=== PATIENT | male | born 1935 | race Caucasian/White ===

== ENCOUNTER → 2017-04-14 | Outpatient (CLI) | payer MEDICARE ==
[~2017-04-14] MED LIST: ASPI-496; CLIN300C8 PO; CLON0.1T PO; HYDR12.53; LOSA100T6; METO-99 PO; METO50TA82; SIMV40TA3
== END | disposition home or self-care (01) ==
LOC: ROC 07:46
PROVIDERS: ATTEND Radiology Radiation Oncology
DX: C61 Malignant neoplasm of prostate (principal); I10 Essential (primary) hypertension; Z79.82 Long term (current) use of aspirin; Z95.1 Presence of aortocoronary bypass graft; Z95.4 Presence of other heart-valve replacement; Z87.891 Personal history of nicotine dependence; Z88.0 Allergy status to penicillin
CPT/HCPCS: 99212; G0463

== ENCOUNTER 2017-07-14 11:01 | Inpatient (IN) | payer MEDICARE ==
[~2017-07-14] VITALS: Ht 170.2 cm; Wt 71.0 kg
[~2017-07-14 11:01] MED LIST changes: -ASPI-496; +ASPI-496 PO; -LOSA100T6; +LOSA100T6 PO; -SIMV40TA3; +SIMV40TA3 PO
[2017-07-14] MEDS ORDERED: ZIPRASIDONE 20 MG INJ IM ONE ×2 (11:04→11:30)
[2017-07-14] MEDS ORDERED: ONDANSETRON 2MG/ML, 2ML ONE (11:23)
[2017-07-14] MEDS ORDERED: SODIUM CHLORIDE FLUSH 10ML SYR IVF ONE (11:30)
[2017-07-14] MEDS ORDERED: ONDANSETRON 2MG/ML, 2ML IVPush ONE (11:30)
[2017-07-14 11:50] LABS: BASOPHILS # (AUTO) 0.02 x10^3/uL (0-0.1); BASOPHILS % (AUTO) 0 % (0-1); EOSINOPHILS # (AUTO) 0.02 x10^3/uL (0-0.4); EOSINOPHILS % (AUTO) 0 % (1-7); LYMPHOCYTES # (AUTO) 1.64 x10^3/uL (1-3.4); LYMPHOCYTES % (AUTO) 21 % (22-44); MD NO; MEAN CORPUSCULAR HEMOGLOBIN 32.9 pg (27.5-34.5); MEAN CORPUSCULAR HGB CONC 33.6 g/dL (33.2-36.2); MEAN CORPUSCULAR VOLUME 97.8 fL (81-97); MEAN PLATELET VOLUME 7.2 fL (7.4-10.4); MONOCYTES # (AUTO) 0.54 x10^3/uL (0.2-0.8); MONOCYTES % (AUTO) 7 % (2-9); NEUTROPHILS # (AUTO) 5.72 x10^3/uL (1.8-6.8); NEUTROPHILS % (AUTO) 72 % (42-75); PLATELET COUNT 177 x10^3/uL (130-400); RED BLOOD COUNT 4.55 x10^6/uL (4.38-5.82); RED CELL DISTRIBUTION WIDTH 12.8 % (9.4-14.8)
[2017-07-14 11:54] LABS: INTERNATIONAL NORMALIZED RATIO 0.99 (0.93-1.1); PROTHROMBIN TIME 10.3 Seconds (9.6-11.5)
[2017-07-14] MEDS ORDERED: HYDR12.53 PO (11:56)
[2017-07-14 12:04] LABS: ANION GAP 10 mmol/L (5-15); CHLORIDE 107 mmol/L (98-107)
[2017-07-14 12:12] LABS: ALANINE AMINOTRANSFERASE 12 U/L (12-78); ALKALINE PHOSPHATASE 84 U/L (45-117); BILIRUBIN,TOTAL 1.2 mg/dL (0.2-1.0); CREATININE 1.58 mg/dL (0.7-1.3); TOTAL PROTEIN 7.4 g/dL (6.4-8.2); TROPONIN I 0.082 ng/mL (0.000-0.045)
[2017-07-14] MEDS ORDERED: ONDANSETRON 2MG/ML, 2ML IVPush PRN (12:30)
[2017-07-14] MEDS ORDERED: ACETAMINOPHEN 325 MG TABLET PO PRN (12:30)
[2017-07-14] MEDS: SODIUM CHLORIDE 0.9% 1,000 ML IV SCH ×2 (12:44→22:02)
[2017-07-14] MEDS ORDERED: hydrALAzine 20 MG/ML, 1ML IV PRN (13:00)
[2017-07-14] MEDS: LEVETIRACETAM 500 MG in SODIUM CHLORIDE 0.9% 100 ML IV SCH (13:04)
[2017-07-14 13:39] VITALS: BP 132/73
[2017-07-14 16:40] LABS: TROPONIN I 0.153 ng/mL (0.000-0.045)
[2017-07-14 19:04] VITALS: BP 94/56
[2017-07-14 19:11] VITALS: BP 101/53
[2017-07-14] MEDS: METOPROLOL TARTRATE 50 MG TABLET PO SCH (20:56)
[2017-07-14] MEDS: SIMVASTATIN 40 MG TABLET PO SCH (20:56)
[2017-07-15] VITALS: BP 121/62
[2017-07-15 01:19] VITALS: BP 109/61
[2017-07-15] MEDS: LEVETIRACETAM 500 MG in SODIUM CHLORIDE 0.9% 100 ML IV SCH (01:22)
[2017-07-15 06:55] VITALS: BP 106/64
[2017-07-15] MEDS: LOSARTAN 50MG TABLET PO SCH (08:39)
[2017-07-15] MEDS: ASPIRIN 81 MG TABLET EC PO SCH (08:39)
[2017-07-15] MEDS: METOPROLOL TARTRATE 50 MG TABLET PO SCH (08:39)
[2017-07-15 12:14] VITALS: BP 114/56
[2017-07-15] MEDS: LEVETIRACETAM 1,000 MG in SODIUM CHLORIDE 0.9% 100 ML IV SCH (13:30)
[2017-07-15 17:21] VITALS: BP 135/63
[2017-07-15 20:13] VITALS: BP 123/72
[2017-07-15] MEDS: SIMVASTATIN 40 MG TABLET PO SCH (21:05)
[2017-07-15] MEDS: METOPROLOL TARTRATE 25 MG TABLET PO SCH (21:05)
[2017-07-15] MEDS ORDERED: TEMAZEPAM 15 MG CAPSULE PO PRN (21:30)
[2017-07-16] VITALS: BP 121/62
[2017-07-16] MEDS: LEVETIRACETAM 1,000 MG in SODIUM CHLORIDE 0.9% 100 ML IV SCH ×2 (01:26→13:09)
[2017-07-16 04:46] VITALS: BP 126/62
[2017-07-16 06:28] LABS: CALCIUM 8.5 mg/dL (8.5-10.1); CHLORIDE 108 mmol/L (98-107)
[2017-07-16 06:31] LABS: ANION GAP 6 mmol/L (5-15); CREATININE 1.07 mg/dL (0.7-1.3)
[2017-07-16 06:45] VITALS: BP 144/80
[2017-07-16 07:30] VITALS: BP 100/58
[2017-07-16] MEDS: LOSARTAN 50MG TABLET PO SCH (07:48)
[2017-07-16] MEDS: ASPIRIN 81 MG TABLET EC PO SCH (07:48)
[2017-07-16 11:57] VITALS: BP 127/77
[2017-07-16] MEDS: METOPROLOL TARTRATE 25 MG TABLET PO SCH (11:59)
[2017-07-16] MEDS ORDERED: METO25TA35 PO (12:24)
[2017-07-16] MEDS ORDERED: LEVE100020 PO (12:24)
[2017-07-16 13:31] VITALS: BP 131/77
== END 2017-07-16 15:51 | disposition home or self-care (01) | DRG 314 ==
LOC: ED 12:19 → EDIP 12:20 → ED 12:36 → 5SO 13:22 → OBSVTOIN 07-15 15:34
PROVIDERS: ADMIT Internal Medicine; ATTEND Internal Medicine
DX: I95.9 Hypotension, unspecified (principal); I71.00 Dissection of unspecified site of aorta; N17.9 Acute kidney failure, unspecified; G93.41 Metabolic encephalopathy; D75.89 Other specified diseases of blood and blood-forming organs; Z95.1 Presence of aortocoronary bypass graft; E53.8 Deficiency of other specified B group vitamins; I12.9 Hypertensive chronic kidney disease with stage 1 through stage 4 chronic kidney disease, or unspecified chronic kidney disease; I25.10 Atherosclerotic heart disease of native coronary artery without angina pectoris; N18.9 Chronic kidney disease, unspecified; N40.0 Benign prostatic hyperplasia without lower urinary tract symptoms; R73.9 Hyperglycemia, unspecified; R32 Unspecified urinary incontinence; T50.8X5A Adverse effect of diagnostic agents, initial encounter; Z82.49 Family history of ischemic heart disease and other diseases of the circulatory system; Z83.3 Family history of diabetes mellitus; Z85.46 Personal history of malignant neoplasm of prostate; Z92.3 Personal history of irradiation; Z95.0 Presence of cardiac pacemaker; Z95.3 Presence of xenogenic heart valve; Z91.041 Radiographic dye allergy status; Z88.0 Allergy status to penicillin; Z91.013 Allergy to seafood; R56.9 Unspecified convulsions; T44.7X5A Adverse effect of beta-adrenoreceptor antagonists, initial encounter; T46.5X5A Adverse effect of other antihypertensive drugs, initial encounter
CPT/HCPCS: 36415; 70450; 71045; 71250; 72125; 74176; 80048; 80053; 80307; 82140; 83735; 84443; 84484; 85025; 85610; 85730; 87040; 93005; 95819; 96372; 96374; G0378; J1953; J2405; J3486; J7030

== ENCOUNTER → 2017-10-22 | Outpatient (CLI) | payer MEDICARE ==
[~2017-10-22] MED LIST changes: +HYDR12.53 PO; +LEVE100020 PO; +METO25TA35 PO
== END ==
LOC: ROC 12:32
PROVIDERS: ATTEND Radiology Radiation Oncology
DX: Z08 Encounter for follow-up examination after completed treatment for malignant neoplasm (principal); C61 Malignant neoplasm of prostate; I10 Essential (primary) hypertension; I25.10 Atherosclerotic heart disease of native coronary artery without angina pectoris; Z79.82 Long term (current) use of aspirin; Z88.0 Allergy status to penicillin; Z95.1 Presence of aortocoronary bypass graft; Z95.2 Presence of prosthetic heart valve
CPT/HCPCS: 99212; G0463

== ENCOUNTER → 2017-11-10 | Outpatient (CLI) | payer MEDICARE ==
[2017-11-10 16:14] LABS: BASOPHILS # (AUTO) 0.03 x10^3/uL (0-0.1); BASOPHILS % (AUTO) 0 % (0-1); EOSINOPHILS # (AUTO) 0.07 x10^3/uL (0-0.4); EOSINOPHILS % (AUTO) 1 % (1-7); LYMPHOCYTES # (AUTO) 0.72 x10^3/uL (1-3.4); LYMPHOCYTES % (AUTO) 8 % (22-44); MD NO; MEAN CORPUSCULAR HEMOGLOBIN 32.4 pg (27.5-34.5); MEAN CORPUSCULAR HGB CONC 33.8 g/dL (33.2-36.2); MEAN CORPUSCULAR VOLUME 95.9 fL (81-97); MEAN PLATELET VOLUME 6.5 fL (7.4-10.4); MONOCYTES # (AUTO) 0.87 x10^3/uL (0.2-0.8); MONOCYTES % (AUTO) 9 % (2-9); NEUTROPHILS # (AUTO) 7.59 x10^3/uL (1.8-6.8); NEUTROPHILS % (AUTO) 82 % (42-75); PLATELET COUNT 227 x10^3/uL (130-400); RED BLOOD COUNT 4.31 x10^6/uL (4.38-5.82); RED CELL DISTRIBUTION WIDTH 12.9 % (9.4-14.8)
== END | disposition home or self-care (01) ==
LOC: RAD 15:45
PROVIDERS: ATTEND Internal Medicine
DX: J18.9 Pneumonia, unspecified organism (principal); Z95.0 Presence of cardiac pacemaker
CPT/HCPCS: 36415; 71046; 83880; 85025

== ENCOUNTER → 2018-04-27 | Outpatient (CLI) | payer MEDICARE ==
[~2018-04-27] MED LIST changes: -LOSA100T6 PO; +LOSA100T7 PO
== END | disposition home or self-care (01) ==
LOC: ROC 08:41
PROVIDERS: ATTEND Radiology Radiation Oncology
DX: Z08 Encounter for follow-up examination after completed treatment for malignant neoplasm (principal); C61 Malignant neoplasm of prostate; Z88.0 Allergy status to penicillin; Z91.013 Allergy to seafood
CPT/HCPCS: G0463

== ENCOUNTER → 2018-11-02 | Outpatient (CLI) | payer MEDICARE ==
[~2018-11-02] MED LIST changes: -CLON0.1T PO; +CLON0.1T22 PO; +HYDR12.517; +HYDR12.517 PO; -HYDR12.53; -HYDR12.53 PO; +LOSA100T14 PO; -LOSA100T7 PO
== END | disposition home or self-care (01) ==
LOC: ROC 08:17
PROVIDERS: ATTEND Radiology Radiation Oncology
DX: C61 Malignant neoplasm of prostate (principal)
CPT/HCPCS: G0463

== ENCOUNTER → 2019-08-16 | Outpatient (CLI) | payer MEDICARE ==
[~2019-08-16] MED LIST changes: +SIMV40TA20 PO; -SIMV40TA3 PO
== END | disposition home or self-care (01) ==
LOC: ROC 08:34
PROVIDERS: ATTEND Radiology Radiation Oncology
DX: C61 Malignant neoplasm of prostate (principal); Z88.0 Allergy status to penicillin; Z91.013 Allergy to seafood; Z91.041 Radiographic dye allergy status
CPT/HCPCS: G0463

== ENCOUNTER 2019-11-01 07:41 | Outpatient (CLI) | payer MEDICARE | END 2019-11-01 23:59 | disposition home or self-care (01) | LOC: ROC 07:41 | PROVIDERS: ATTEND Radiology Radiation Oncology | DX: Z08 Encounter for follow-up examination after completed treatment for malignant neoplasm (principal); C61 Malignant neoplasm of prostate | CPT/HCPCS: G0463 ==

== ENCOUNTER 2019-12-06 09:49 | Outpatient (CLI) | payer MEDICARE ==
[2019-12-06] MEDS ORDERED: LEUPROLIDE (ELIGARD) 22.5 MG SYR SQ ONE (13:30)
== END 2019-12-06 23:59 | disposition home or self-care (01) ==
LOC: ROC 09:49
PROVIDERS: ATTEND Radiology Radiation Oncology
DX: Z51.11 Encounter for antineoplastic chemotherapy (principal); C61 Malignant neoplasm of prostate; Z79.82 Long term (current) use of aspirin
CPT/HCPCS: 96402; G0463; J9217

== ENCOUNTER 2020-01-25 07:11 | Outpatient (CLI) | payer MEDICARE | END 2020-01-25 23:59 | disposition home or self-care (01) | LOC: ROC 07:11 | PROVIDERS: ATTEND Radiology Radiation Oncology | DX: C61 Malignant neoplasm of prostate (principal); I10 Essential (primary) hypertension; F17.210 Nicotine dependence, cigarettes, uncomplicated; Z88.0 Allergy status to penicillin; Z91.013 Allergy to seafood; Z91.041 Radiographic dye allergy status | CPT/HCPCS: 55876; 76942; 77332; 99156; A4648 ==

== ENCOUNTER 2020-01-31 09:03 | Outpatient (CLI) | payer MEDICARE | END 2020-01-31 23:59 | disposition home or self-care (01) | LOC: ROC 09:03 | PROVIDERS: ATTEND Radiology Radiation Oncology | DX: C61 Malignant neoplasm of prostate (principal); I10 Essential (primary) hypertension; Z87.891 Personal history of nicotine dependence | CPT/HCPCS: G0463 ==

== ENCOUNTER → 2020-03-07 | Outpatient (CLI) | payer MEDICARE ==
[~2020-03-07] MED LIST changes: +LEUPROLIDE (ELIGARD) 22.5 MG SYR SQ ONE
== END | disposition home or self-care (01) ==
LOC: ROC 07:24
PROVIDERS: ATTEND Radiology Radiation Oncology
DX: Z51.11 Encounter for antineoplastic chemotherapy (principal); C61 Malignant neoplasm of prostate; I10 Essential (primary) hypertension; Z87.891 Personal history of nicotine dependence
CPT/HCPCS: 96402; J9217

== ENCOUNTER → 2020-05-29 | Outpatient (CLI) | payer MEDICARE ==
[~2020-05-29] MED LIST changes: -CLIN300C8 PO; +CLIN300C9 PO; -LEUPROLIDE (ELIGARD) 22.5 MG SYR SQ ONE
== END | disposition home or self-care (01) ==
LOC: ROC 08:07
PROVIDERS: ATTEND Radiology Radiation Oncology
DX: Z08 Encounter for follow-up examination after completed treatment for malignant neoplasm (principal); Z85.46 Personal history of malignant neoplasm of prostate
CPT/HCPCS: G0463